=== PATIENT | female | born 1980 | race Caucasian/White ===

== ENCOUNTER 2022-08-31 05:45 | Day surgery (SDC) | payer SELFPAY ==
[2022-08-21 15:26] LABS: ALANINE AMINOTRANSFERASE 20 U/L (12-78); ALBUMIN 4.3 G/DL (3.4-5.0); ALBUMIN/GLOBULIN RATIO 1.4 (1.1-1.5); ALKALINE PHOSPHATASE 45 IU/L (46-116); ANION GAP 10 (8-16); ASPARTATE AMINO TRANSFERASE 18 U/L (10-37); BILIRUBIN,TOTAL 0.1 MG/DL (0.1-1.0); BLOOD UREA NITROGEN 14 MG/DL (7-18); BUN/CREATININE RATIO 17.9 (6.6-38.0); CALCIUM 9.2 MG/DL (8.5-10.1); CHLORIDE 100 MMOL/L (99-107); CREATININE 0.78 MG/DL (0.40-0.90); GLUCOSE 110 MG/DL (70-104); POTASSIUM 3.4 MMOL/L (3.5-5.1); SODIUM 136 MMOL/L (135-145); TOTAL CARBON DIOXIDE 25.7 MMOL/L (24-32); TOTAL PROTEIN 7.3 G/DL (6.4-8.2); eGFR 81 ML/MIN
[2022-08-21 15:27] LABS: BASOPHILS % (AUTO) 0.3 % (0-1); EOSINOPHILS # (AUTO) 0.1 X10'3 (0-0.9); EOSINOPHILS % (AUTO) 1.5 % (0-6); HEMATOCRIT 40.4 % (35.0-45.0); HEMOGLOBIN 13.6 g/dl (12.0-16.0); LYMPHOCYTES # (AUTO) 1.3 X10'3 (1.1-4.8); LYMPHOCYTES % (AUTO) 18.8 % (21-51); MEAN CORPUSCULAR HGB CONC 33.5 g/dL (33.0-36.5); MEAN CORPUSCULAR VOLUME 92.5 FL (78-98); MONOCYTES # (AUTO) 0.6 X10'3 (0-0.9); MONOCYTES % (AUTO) 8.9 % (2-12); NEUTROPHILS # (AUTO) 5.1 X10'3 (1.8-7.7); NEUTROPHILS % (AUTO) 70.5 % (42-75); PLATELET COUNT 227 X10'3 (140-440); RED BLOOD COUNT 4.37 X10'6 (4.20-5.60); RED CELL DISTRIBUTION WIDTH 14.1 % (11.5-14.5); WHITE BLOOD COUNT 7.2 X10'3 (4.5-11.0)
[2022-08-21 16:43] LABS: HCG SERUM QL NEGATIVE
[2022-08-31] VITALS (15 sets, daily range): BP systolic 83–106; BP diastolic 52–65
[~2022-08-31] VITALS: Ht 170.2 cm; Wt 70.5 kg
[~2022-08-31 05:45] MED LIST: ASPI-529 PO; CHOL500049 PO; VITA-268 PO; ceFAZolin inj. 2,000 MG in dextrose 5%-water 100 ML IV ONE; famotidine 20mg tablet PO ONE; ringers solution, lacted 1,000 ML IV SCH
[2022-08-31] MEDS ORDERED: bacitracin 15gm ointment TP ONE (06:37)
[2022-08-31] MEDS ORDERED: LIDOCAINE 1%/EPI 1:100,000 inj. 10 ML multi-dose vial ONE ×3 (06:37→09:14)
[2022-08-31] MEDS ORDERED: cocaine 4% topical solution 4ml bottle ONE (06:37)
[2022-08-31] MEDS ORDERED: aprepitant 40mg capsule PO ONE (07:12)
[2022-08-31] MEDS ORDERED: labetalol 20mg/4ml (5mg/ml) syringe IV PRN (07:20)
[2022-08-31] MEDS ORDERED: morphine 4 MG/ML inj SYRINge IV PRN (07:20)
[2022-08-31] MEDS ORDERED: hydrALAZINE 20mg/ml inj. IV PRN (07:20)
[2022-08-31] MEDS ORDERED: morphine 2 MG/ML inj. syringe IV PRN (07:20)
[2022-08-31] MEDS ORDERED: ketorolac tromethamine 15mg/ml inj. IV ONE (07:20)
[2022-08-31] MEDS ORDERED: ringers solution, lacted 1,000 ML IV SCH (07:20)
[2022-08-31] MEDS ORDERED: ondansetron/PF 4mg/2ml inj IV PRN (07:20)
[2022-08-31] MEDS ORDERED: meperidine/PF 25mg/ml syringe IV PRN ×3 (07:20)
[2022-08-31] MEDS ORDERED: acetaminophen 1,000mg/100ml IV 100 ML IV PRN (07:20)
[2022-08-31] MEDS ORDERED: midazolam 1 mg/ML 2ml injection ONE (07:30)
[2022-08-31] MEDS ORDERED: propofol inj 20 ML IV ONE ×4 (08:00)
[2022-08-31] MEDS ORDERED: rocuronium 10mg/ml inj IV ONE (08:00)
[2022-08-31] MEDS ORDERED: LIDOcaine 2% (20mg/ml) 5ml vial ONE (08:00)
[2022-08-31] MEDS ORDERED: fentaNYL/PF 50MCG/1 ML 2ML syringe ONE (08:00)
[2022-08-31] MEDS ORDERED: dexamethasone sod phosphate 4mg/ml inj. ONE (08:08)
[2022-08-31] MEDS ORDERED: ondansetron/PF 4mg/2ml inj ONE (08:10)
[2022-08-31] MEDS ORDERED: gentamicin 40 MG/1 ML inj ONE (08:33)
[2022-08-31] MEDS ORDERED: phenylephrine 10mg/ml inj. ONE (10:06)
--- NOTE | 2022-08-31 10:55 | NUR ---
Received from OR via [facility], accompanied by Anesthesiologist ERIC and OR NURSEreport given by Anesthesiolgist. PT DROWSY BUT RESPONDS TO VERBAL STIMULI. DENIES PAIN OR DISCOMFORT. ORAL AIRWAY PRESENT UPON ARRIVAL; REMOVED BY VEHICLE AND EQUIPMENT CLEANER. DRESSING DRY AND INTACT. 02 AT 6LPM VIA MASK. Addendum: 08/31/22 at 1109 by Bernice Bernabe RN Amended: Links added.
--- NOTE | 2022-08-31 13:05 | NUR ---
ALL DISCHARGE CRITERIA HAS BEEN MET. VSS, PAIN AT A TOLERABLE LEVEL, VOIDING AND ABLE TO SAFELY AMBULATE AND TRANSFER SELF. IV TAKEN OUT WITHOUT ANY COMPLICATIONS. ALL DISCHARGE INSTRUCTIONS COVERED WITH PATIENT AND ALL QUESTIONS ANSWERED. PATIENT TAKEN OUT VIA WHEELCHAIR TO PERSONAL VEHICLE WHERE FAMILY/FRIEND DROVE PATIENT HOME. Addendum: 08/31/22 at 1330 by Bernice Bernabe RN Amended: Links added.
== END 2022-08-31 13:05 | disposition home or self-care (01) ==
LOC: PAS 05:45
PROVIDERS: ATTEND Specialist
DX: Z41.1 Encounter for cosmetic surgery (principal); M26.06 Microgenia; R22.1 Localized swelling, mass and lump, neck; K21.9 Gastro-esophageal reflux disease without esophagitis; Z88.2 Allergy status to sulfonamides; Z88.8 Allergy status to other drugs, medicaments and biological substances; Z91.09 Other allergy status, other than to drugs and biological substances; Z98.890 Other specified postprocedural states; Z79.899 Other long term (current) drug therapy; J34.89 Other specified disorders of nose and nasal sinuses; Z20.822 Contact with and (suspected) exposure to COVID-19
CPT/HCPCS: 15876; 21122; 30420; 36415; 80053; 82948; 84703; 85025; 87811; A6258; A6402; J0131; J0690; J1100; J1580; J1885; J2250; J2370; J2405; J2704; J3010; J3490; J7030; J7060; J7120; J8501; Z7506; Z7508; Z7512; A4215; A4618; A6446; A6449; A7000